=== PATIENT | female | born 1965 | race Caucasian/White ===

== ENCOUNTER 2016-07-17 11:39 | Outpatient (CLI) | END 2016-07-17 11:40 | LOC: AMBL 11:39 | PROVIDERS: ATTEND Internal Medicine | DX: F99 Mental disorder, not otherwise specified (principal); R25.1 Tremor, unspecified; T50.905A Adverse effect of unspecified drugs, medicaments and biological substances, initial encounter ==

== ENCOUNTER 2017-06-26 08:07 | Outpatient (CLI) ==
--- NOTE | 2017-06-26 09:58 | MAMMO ---
EXAM: Bilateral digital screening mammogram (2-D and 3-D) History: Screening Comparison: Bilateral mammogram 05/11/2013 Findings: MLO and CC views of bilateral breasts demonstrate predominately fatty replaced breast pare nchyma. CAD was reviewed by the radiologist. Tomosynthesis was performed. Stable benign lymph node s within the right breast. There are no dominant masses, no suspicious microcalcifications and no ar chitectural distortions Impression: Benign stable mammogram. Recommend followup routine screening mammography in 1 year. BIRADS 2
== END 2017-06-26 08:08 | disposition home or self-care (01) ==
LOC: RAD 08:07
PROVIDERS: ATTEND Nurse Practitioner
DX: Z12.31 Encounter for screening mammogram for malignant neoplasm of breast (principal)
CPT/HCPCS: 77067

== ENCOUNTER 2018-08-27 15:01 | Outpatient (CLI) ==
[2018-08-28 15:21] VITALS: BMI 50.1
== END 2018-08-27 15:02 | disposition home or self-care (01) ==
LOC: RHC-LAB 15:01
PROVIDERS: ATTEND Nurse Practitioner Family
DX: J02.9 Acute pharyngitis, unspecified (principal); R05 Cough; R50.9 Fever, unspecified
CPT/HCPCS: 87502; 87651

== ENCOUNTER 2018-08-28 15:16 | Inpatient (IN) ==
[2018-08-28 15:21] VITALS: BMI 50.1
[2018-08-28] MEDS ORDERED: DUONEB NEB STA (15:30)
--- NOTE | 2018-08-28 15:37 | ED.PDOC ---
General ED Provider: Dr. MICHAEL RAMSEY Chief Complaint: Respiratory Complaint Stated Complaint: Shortness of breath and wheezing. Onset This AM upon awakening. Was see in [facility] yesterday and dx with Strep started on prednisone and Penicillin. States Strep screen was negative. This AM Dyspnea progressively worsened throughout morning until her arrival here. Denies smoking , past hx of lung disease. Only time of being dyspneic was when she was treated for colon cancer serveral years ago. Never had allergy to any antibiotics previously,. Time Seen by Physician: 15:30 Mode of Arrival: Walk-In Information Source: Patient, Family Exam Limitations: No limitations Nursing and Triage Documentation Reviewed and Agree: Yes Does patient meet sepsis criteria?: No If yes, has appropriate treatment been initiated?: No System Inflammatory Response Syndrome: Not Applicable Sepsis Protocol: For patient's 13 years and over: Temp is 96.8 and below OR 101 and greater Pulse >90 BPM Resp >20/minute Acutely Altered Mental Status Are patient's symptoms suggestive of a new infection, such as: -Pneumonia -Skin, Soft Tissue -Endocarditis -UTI -Bone, Joint Infection -Implantable Device -Acute Abdominal Infection -Wound Infection -Meningitis -Blood Stream Catheter Infection -Unknown Respiratory Complaint Exam - Shortness of Air Complaint/Exam Onset/Duration: 6 hrs Symptoms Are: Still present, Worse Timing: Constant Initial Severity: Moderate Current Severity: Severe Character: Reports: Dyspnea at rest, Dyspnea on exertion Aggravating: Reports: Movement, Recumbent position Alleviating: Reports: None Associated Signs and Symptoms: Reports: Cough, Wheezing Related History: Denies: Similar episode History of Healthcare-Acquired Pneumonia: No Pulmonary Embolism Risk Factors: Reports: None Cardiac Risk Factors: Reports: None Pseudomonas Risk Factors: Reports: None Tuberculosis Risk Factors: Reports: None Home Oxygen Use: No Recent Stress Test: No Recent Echo/LV Function: No Respiratory Distress: Moderate Stridor Present: No Tracheal Deviation: No Subcutaneous Emphysema: No Accessory Muscle Use: No Retractions: Not Present Diminished Breath Sounds: Yes Unable to Speak Full Sentences: Yes Fatigue: Yes Leg Swelling: No Radha's Sign Present: No Grunting Respirations: No Kussmaul Respirations: No Differential Diagnoses: Asthma, Pulmonary Embolism, Anaphylaxis, Bronchospasm Quality Indicators for AMI: EKG in 10min. Related Surgical History: Reports: None Review of Systems - Review Of Systems Constitutional: Reports: No symptoms Eyes: Reports: No symptoms Ears, Nose, Mouth, Throat: Reports: No symptoms, Throat pain Respiratory: Reports: Short of air, Wheezing Cardiac: Reports: No symptoms GI: Reports: No symptoms : Reports: No symptoms Musculoskeletal: Reports: No symptoms Skin: Reports: No symptoms Neurological: Reports: No symptoms Endocrine: Reports: No symptoms Hematologic/Lymphatic: Reports: No symptoms All Other Systems: Reviewed and Negative Past Medical History - Past Medical History Previously Healthy: Yes Endocrine: Reports: Hypothyroid Cardiovascular: Reports: None Respiratory: Reports: None Hematological: Reports: None Gastrointestinal: Reports: None Genitourinary: Reports: None Neuro/Psych: Reports: None Musculoskeletal: Reports: Arthritis Cancer: Reports: Colon Last Menstrual Period: n/a - Surgical History General Surgical History: Reports: Other (colon resection ) - Family History Family History: Reports: None - Social History Smoking Status: Never smoker Hx Substance Use: No Alcohol Screening: None Physical Exam - Physical Exam Appearance: Ill-appearing, Obese Ill-appearing: Moderate Pain Distress: None Eyes: RICHIE, EOMI, Conjunctiva clear ENT: Ears normal, Nose normal, Oropharynx normal, Erythema Neck: Supple Respiratory: Breath sounds diminished, Wheezes Cardiovascular: RRR, Pulses normal, No rub, No murmur GI/: Soft, Nontender, No masses, Bowel sounds normal, No Organomegaly Musculoskeletal: Normal strength, ROM intact, No edema, No calf tenderness Skin: Warm, Dry, Normal color Neurological: Sensation intact, Motor intact, Reflexes intact, Cranial nerves intact, Alert, Oriented Psychiatric: Affect appropriate, Mood appropriate Interpretation - Radiology Interpretation Exam Interpreted: CT Scan (PE protocol neg) Re-Evaluation - Re-Evaluation Time of Re-Evaluation: 18:40 Status: Improved (but remains dyspneic at rest.worse with exertion ) Lungs: Other (wheezing) Skin: Warm and Dry Neuro: Alert and Oriented X3 CV: RRR Physician Notification - Case Discussed Physician Notified: Dr Joy Time of Notification: 19:45 (will accept admission ) Critical Care Note - Critical Care Note Total Time (mins): 120 Course - Course Hematology/Chemistry: 08/28/18 15:38 08/28/18 15:45 Orders, Labs, Meds: Lab Review 08/28/18 08/28/18 08/28/18 15:37 15:38 15:43 WBC 10.82 H RBC 5.13 Hgb 14.1 Hct 43.2 MCV 84.2 MCH 27.5 MCHC 32.6 RDW Coeff of Krishna 13.5 Plt Count 193 Immature Gran % (Auto) 0.4 Neut % (Auto) 74.1 Lymph % (Auto) 16.5 Leon % (Auto) 5.0 Eos % (Auto) 3.7 Baso % (Auto) 0.3 Immature Gran # (Auto) 0.0 Neut # (Auto) 8.0 H Lymph # (Auto) 1.8 Leon # (Auto) 0.5 Eos # (Auto) 0.4 Baso # (Auto) 0.0 Puncture Site Lr O2 Saturation 95.0 ABG pH 7.366 ABG pCO2 45.4 H ABG pO2 76.0 L ABG HCO3 26.0 ABG Total CO2 27 ABG Base Excess 1 Willie Test + O2 Delivery Device Nc Oxygen Liter Flow 2.00 Sodium Potassium Chloride Carbon Dioxide Anion Gap BUN Creatinine Estimated GFR (MDRD) BUN/Creatinine Ratio Glucose Calcium Total Bilirubin AST ALT Alkaline Phosphatase Total Creatine Kinase Troponin I Total Protein Albumin Globulin Albumin/Globulin Ratio Influ A Molecular Assay Negative by naat Influ B Molecular Assay Negative by naat 08/28/18 08/28/18 15:45 15:45 WBC RBC Hgb Hct MCV MCH MCHC RDW Coeff of Krishna Plt Count Immature Gran % (Auto) Neut % (Auto) Lymph % (Auto) Leon % (Auto) Eos % (Auto) Baso % (Auto) Immature Gran # (Auto) Neut # (Auto) Lymph # (Auto) Leon # (Auto) Eos # (Auto) Baso # (Auto) Puncture Site O2 Saturation ABG pH ABG pCO2 ABG pO2 ABG HCO3 ABG Total CO2 ABG Base Excess Willie Test O2 Delivery Device Oxygen Liter Flow Sodium 146.3 H Potassium 3.16 L Chloride 107.1 H Carbon Dioxide 28.8 Anion Gap 13.56 BUN 11.7 Creatinine 0.76 Estimated GFR (MDRD) 79.00 BUN/Creatinine Ratio 15.39 Glucose 130.8 H Calcium 8.63 Total Bilirubin 1.31 H AST 26.6 ALT 31.3 Alkaline Phosphatase 109.6 Total Creatine Kinase 77.1 Troponin I < 0.012 Total Protein 7.44 Albumin 4.16 Globulin 3.28 Albumin/Globulin Ratio 1.26 Influ A Molecular Assay Influ B Molecular Assay Orders Category Date Time Status ABG DRAW REQUEST Stat CARDIO 08/28/18 15:38 Completed EKG-(ED ONLY) Stat CARDIO 08/28/18 15:37 Completed EKG-(IP & OP ONLY) Routine CARDIO 08/28/18 20:07 Ordered NEBULIZER TREATMENT Routine CARDIO 08/28/18 20:09 Ordered NEBULIZER TREATMENT Stat CARDIO 08/28/18 15:30 Completed OXYGEN Routine CARDIO 08/28/18 15:42 Ordered OXYGEN Routine CARDIO 08/28/18 20:04 Ordered ACTIVITY .BR with BRP CARE 08/28/18 20:05 Ordered BLOOD GLUCOSE MONITORING 0630,1100,1700,2100 CARE 08/28/18 20:07 Ordered INTAKE & OUTPUT Q8HR CARE 08/28/18 20:04 Ordered NPO REMINDER: IMAGING ONCE CARE 08/28/18 16:50 Completed VITAL SIGNS Q4HR CARE 08/28/18 20:05 Ordered REGULAR DIET DIETARY 08/28/18 Dinner Ordered IV [ED IV/MEDIPORT/POWERPORT] .ONCE EMERGENCY 08/28/18 15:33 Active ABG Stat LAB 08/28/18 15:37 Completed CBC W/ AUTO DIFF Stat LAB 08/28/18 15:38 Completed CMP [COMPREHENSIVE METABOLIC PANEL] Stat LAB 08/28/18 15:45 Completed CREATINE KINASE Stat LAB 08/28/18 15:45 Completed FLU A & B MOLECULAR [FLU A/B MOLECULAR] Stat LAB 08/28/18 15:43 Completed LACTIC ACID Stat LAB 08/28/18 20:13 Ordered PROCALCITONIN Stat LAB 08/28/18 20:13 Ordered RAPID STREP SCREEN [MOLECULAR GROUP A STREP] Stat LAB 08/28/18 15:43 Completed TROPONIN I Stat LAB 08/28/18 15:45 Completed TSH [THYROID STIMULATING HORMONE] Stat LAB 08/29/18 07:00 Ordered 0.9 % Sodium Chloride [Saline Flush] MEDS 08/28/18 15:34 Active 1 syr IVF PRN PRN Albuterol Sulfate 0.083% Neb [Albuterol 0.083% Neb] MEDS 08/28/18 20:04 Ordered 1 vial NEB RTQID PRN Cholecalciferol (Vitamin D3) [Vitamin D3] MEDS 08/28/18 21:00 Ordered 50,000 unit PO TID Enoxaparin Sodium [Lovenox] MEDS 08/28/18 20:30 Ordered 40 mg SUBCUT DAILY Famotidine [Pepcid] MEDS 08/28/18 20:30 Ordered 20 mg PO 1-3XD Hydrocortisone Sod Succ/Pf [Solu-Cortef 250 mg] MEDS 08/28/18 16:00 Discontinued 125 mg IVP ONCE ONE Ipratropium/Albuterol Neb [Duoneb] MEDS 08/28/18 15:30 Discontinued 1 vial NEB ONCE STA Ipratropium/Albuterol Neb [Duoneb] MEDS 08/29/18 00:00 Ordered 1 vial NEB RTQ6H Levothyroxine Sodium [Synthroid] MEDS 08/29/18 09:00 Ordered 25 mcg PO DAILY Potassium Chloride [K-Dur] MEDS 08/28/18 18:34 Discontinued 20 meq PO ONCE STA Prednisone MEDS 08/29/18 09:00 Ordered 40 mg PO DAILY Trazodone HCl [Desyrel] MEDS 08/28/18 21:00 Ordered 50 mg PO BEDTIME RESUSCITATION STATUS Routine OTHERS 08/28/18 20:04 Ordered CHEST, 1V AP ONLY Stat RADS 08/28/18 15:[address] CHEST PE PROTOCOL Stat RADS 08/28/18 16:49 Completed Medications Generic Name Dose Route Start Last Admin Trade Name Freq PRN Reason Stop Dose Admin Albuterol Sulfate 1 vial 08/28/18 20:04 Albuterol 0.083% Neb NEB RTQID PRN Wheezing Albuterol/Ipratropium 1 vial 08/29/18 00:00 Duoneb NEB RTQ6H ERIN Enoxaparin Sodium 40 mg 08/28/18 20:30 Lovenox SUBCUT DAILY ERIN Famotidine 20 mg 08/28/18 20:30 Pepcid PO 1-3XD ERIN Levothyroxine Sodium 25 mcg 08/29/18 09:00 Synthroid PO DAILY ERIN Non-Formulary Medication 50,000 unit 08/28/18 21:00 Cholecalciferol (Vitamin D3) [Vitamin D3] PO TID ERIN Prednisone 40 mg 08/29/18 09:00 Prednisone PO DAILY ERIN Sodium Chloride 1 syr 08/28/18 15:34 08/28/18 16:24 Saline Flush IVF 1 syr PRN PRN Administration To flush IV Trazodone HCl 50 mg 08/28/18 21:00 Desyrel PO BEDTIME ERIN Discontinued Medications Generic Name Dose Route Start Last Admin Trade Name Jose PRN Reason Stop Dose Admin Albuterol/Ipratropium 1 vial 08/28/18 15:30 08/28/18 16:27 Duoneb NEB 08/28/18 15:31 1 vial ONCE STA Administration Hydrocortisone Sodium Succinate 125 mg 08/28/18 16:00 08/28/18 16:23 Solu-Cortef 250 Mg IVP 08/28/18 16:01 125 mg ONCE ONE Administration Potassium Chloride 20 meq 08/28/18 18:34 08/28/18 18:46 K-Dur PO 08/28/18 18:35 20 meq ONCE STA Administration Vital Signs: Temp Pulse Resp BP Pulse Ox 08/28/18 15:17 98.7 F 106 H 20 153/88 H 90 L Departure - Departure Time of Disposition: 20:30 Disposition: ADMITTED INPATIENT Discharge Problem: Dyspnea and respiratory abnormality, Wheezing, Pharyngitis Instructions: Pharyngitis (ED), Wheezing (ED) Condition: Stable Pt referred to PMD for follow-up: Yes (Dr Juarez) IPMP verified?: No Allergies/Adverse Reactions: Allergies topiramate [From Topamax] Adverse Reaction (Verified 08/28/18 15:21) Home Medications: Ambulatory Orders Cholecalciferol (Vitamin D3) [Vitamin D3] 50,000 unit PO TID 08/27/18 Cyanocobalamin (Vitamin B-12) [B-12] 500 mcg PO DAILY 08/27/18 Diclofenac Sodium 75 mg PO DAILY 08/27/18 Escitalopram Oxalate 10 mg PO BEDTIME 08/27/18 Famotidine [Pepcid] 20 mg PO 1-3XD 08/27/18 Furosemide 20 mg PO DAILY 08/27/18 Levothyroxine Sodium 25 mcg PO DAILY 08/27/18 Trazodone HCl 50 mg PO BEDTIME 08/27/18 Disposition Discussed With: Patient, Family, Other (Dr Teague)
[2018-08-28] MEDS ORDERED: SOLU-CORTEF 100 MG 125 MG in SODIUM CHLORIDE 100 ML IV ONE (15:39)
[2018-08-28] MEDS ORDERED: SOLU-CORTEF 250 MG IVP ONE (16:00)
--- NOTE | 2018-08-28 18:28 | CT ---
EXAM: CTA chest with contrast using PE protocol. TECHNIQUE: Helical CTA of the chest was performed with contrast in axial plane with coronal and sagit jc reconstructions and separate work station 3-D renderings. COMPARISON: Chest x-ray from today and chest CT from 10/29/2013 all HISTORY: . Short of breath with chest pain FINDINGS: There are no filling defects in the pulmonary arteries to the level of the subsegmental branches. The re is no sign of ventricular strain. The lungs are clear with no large effusion or failure or lobar i nfiltrate. There is no pathologic supraclavicular, axillary, mediastinal or hilar adenopathy. There is no pericardial effusion or pneumothorax. The aorta demonstrates mild atherosclerotic calcifi cations with no dissection or aneurysm. There are gallstones with no inflammation. There is a splen ule near the spleen. There are no acute osseous abnormalities. IMPRESSION: 1. No evidence for pulmonary embolus. Lungs are clear. 3. No dissection or aneurysm of the aorta. 4. Gallstones with no inflammation.
[2018-08-28] MEDS ORDERED: K-DUR PO STA (18:34)
[2018-08-28] MEDS ORDERED: ALBUTEROL 0.083% NEB NEB PRN (20:04)
[2018-08-28] MEDS ORDERED: PEPCID PO SCH (20:30)
[2018-08-28] MEDS ORDERED: NON-FORMULARY MEDICATION (Cholecalciferol (Vitamin D3) [Vitamin D3] 50,000 UNIT) PO SCH (21:00)
--- NOTE | 2018-08-28 21:13 | PCM ---
- Chief Complaint Chief Complaint: SOA and wheezing, respiratory concern - History of Present Illness History of Present Illness: 53 yo CF patient seen by POWER TECHNICIAN Siddhartha 08/27/18 at [facility] of sore throat, painful swallowing, itchy/watery eyes, productive cough w/ yellow sputum, sneezing, nasal drainage, body aches, nasal drainage, HERNANDEZ x 24 hours. History noted fear of strep as she has had this in the past. No fever, no chills, no N/V/D/ Constipation rash or dysuria. OTC allergy meds utilized, exposed to flu. Weight 259 in clinic, Temp 98.4, R 16, BP 132/88. She was dx with acute non- recurrent maxillary sinusitis despite only 24 hours of symptoms and started on Pencillin V Potassium 500 TID x 7 days. Dx Pharyngitis and prednisone 20mg PO Daily 2 days #4. No known allergies to meds. Centor criteria suggest strep less likely, lack of tonsils suggests strep less likely. Presented to ED 15:30 08/28/18 w/ SOA, wheezing, onset this am upon awakening. She met with Dr. Esteban d/w him the clinic eval. SALAS, worsening throughout am and arrived in ER as noted ~1530. No tobacco history, no history of lung disease. Was treated for similar symptom several years ago when she had h/o colon cancer. NO allergy to abx. Temp 98.7, HR 106, RR 20, BP 153/88, O2 90%. WBC 10.82, hgb 14.1, hcg 43.2, plt 193. ABG ph 7.366, O2 saturation 95%, 45.4 pc02, hco3 26, and represented primary respiratory acidosis chronic with secondary metabolic acidosis. CL elevated. Anion Gap of 10.4 mEq/L Delta Ratio 0.3 mEq/ L suggests hyperchloremic normal anion gap acidosis. Corrected Gap for albumin was 10.0. Sodium 146.3 and mildly elevated. K+ 3.16 and mildly low. Cl 107.1 and mildly high. glucose 130.8. Bili 1.31. Calcium 8.63. Procalcitinon negative, lactic acid negative. CK 77.1 Trop I was <0.012. Flu negative. Within ER she received neb treatment at 15#0, 20:09, oxygen was added. Glucose monitoring was added. ABG done 15:38. Rapid strep was negative, flu was negative. TSH checked and normal. Was given solu-cortef 250mg 08/28/18 16:00 duon eb 15:30, K dur 20meq given. Dr. Estbean called me just after 19:59 and informed me about the patient. Moderate to severe symptoms, SALAS at rest and with exertion. Worse w/ movement, recumbent position, no alleviating factors. Cough/wheezing, SOA, hard to capture breath. Moderate respiratory distress, asthma, PE, anaphylaxis, bronchospasm were all on the list. She hsa not inhaled anything, only new medication was the PCN. She has no rash, no fever, no SIRS criteria, no neuro changes, no MSK issues, no GI issues, No issues. PMH hypothyroid, arthritis and colon cancer. No drugs, no ETOH, no smoking. Daughter tomy present, permission given to speak freely. 2 doses of abx yesterday, 1 this am. She had symptoms ~1.5-2 hours after dose and has worsened. Took no more. Concern for PCN allergy. No rash. She has SALAS, Orthopnea. No CP, no vision changes, no syncope. - Review of Systems Constitutional: sweats, fatigue, loss of appetite. No: fever, chills, weakness Eyes: itching. No: blurred vision, double-vision, discharge, pain, redness, photophobia, other Ears: No: pain, bleeding, drainage, ringing, hearing loss, other Nose: congestion, discharge Throat: pain, swelling. No: voice change, other Mouth: No: bleeding, pain, swelling, other Respiratory: cough, shortness of air, wheeze (reported), pain with breathing Cardiovascular: PND, orthopnea. No: chest pain, left arm pain, diaphoresis, edema, palpitations (She reported no. ), syncope Gastrointestinal: No: abdominal pain, nausea, vomiting, diarrhea, melena, hematemesis, hematochezia, dysphagia, constipation Genitourinary: No: dysuria, hematuria, frequency, incontinence, flank pain, vaginal discharge, abnormal bleeding, pelvic pain, other Neurological: other. No: headache, dizziness, seizure, numbness, weakness, speech difficulty, problems with walking, tremor, fainting Musculoskeletal: No: pain, swelling in joints, other Skin: No: rash, pruritus, lacerations, wounds, bruising, other Immunology: No: hives, itching, frequent infections, difficulty healing, other Hematology: No: easy bruising, easy bleeding, swollen glands, other Endocrine: No: weight changes, cold intolerance, heat intolerance, excessive thirst, excessive hunger, polyuria, other Psychiatric: depression, anxiety (no panic. ). No: sleeplessness, hopelessness , suicidal, hallucinations, other - Past Medical History Past Medical History: Colon Cancer, Arthritis, Acquired Hypothyroidism. Morbid obesity. Insomnia, GERD. - Past Surgical History Past Surgical History: Colectomy secondary to colon cancer, Lymph node sentinal dissection. Tonsillectomy. Adenoidectomy. - Allergies Allergies/Adverse Reactions: Allergies Allergy/AdvReac Type Severity Reaction Status Date / Time penicillin V Allergy Severe Chest Verified 08/28/18 22:43 Tightness topiramate [From Topamax] AdvReac Mild Abdominal Verified 08/28/18 22:43 Pain - Medications Medications: Medications Generic Name Dose Route Start Last Admin Trade Name Freq PRN Reason Stop Dose Admin Albuterol Sulfate 1 vial 08/28/18 20:04 Albuterol 0.083% Neb NEB RTQID PRN Wheezing Albuterol/Ipratropium 1 vial 08/29/18 00:00 Duoneb NEB RTQ6H ERIN Enoxaparin Sodium 40 mg 08/28/18 20:30 Lovenox SUBCUT DAILY ERIN Famotidine 20 mg 08/28/18 20:30 Pepcid PO 1-3XD ERIN Levothyroxine Sodium 25 mcg 08/29/18 09:00 Synthroid PO DAILY ERIN Non-Formulary Medication 50,000 unit 08/28/18 21:00 Cholecalciferol (Vitamin D3) [Vitamin D3] PO TID ERIN Prednisone 40 mg 08/29/18 09:00 Prednisone PO DAILY ERIN Sodium Chloride 1 syr 08/28/18 15:34 08/28/18 16:24 Saline Flush IVF 1 syr PRN PRN Administration To flush IV Trazodone HCl 50 mg 08/28/18 21:00 Desyrel PO BEDTIME ERIN - Family History Past Family History: Mother Cancer, Heart prolbems, HTN, Thyroid disease. MGM Cancer. MGF Cancer. #2 daughters. - Social History Past Social History: . . No drugs/no ETOH/NO Tobacco. - Vital Signs Temperature: 98.7 F Pulse Rate: 106 Respiratory Rate: 20 Blood Pressure: 153/88 O2 Sat by Pulse Oximetry: 90 - Body Composition Height: 5 ft Weight: 256 lb 14.4 oz Body Mass Index (BMI): 50.1 - Physical Examination HEENT: Constitutional: Appearance-No acute distress, Consistent with stated age. Orientation- Oriented x 3, alert Build and Nutrition- Morbid obesity BMI 50.2. General- Patient is pleasant and cooperative with the interview and exam. Integumentary: General-No rashes, ulcers or lesions. Palpation- Normal skin moisture/turgor. Skin is warm to touch, appropriate. Capillary refill is normal bilateral Upper and lower extremity. With Nurse Kayler present under breast, inner thigh, buttock evaluated. No rash, no skin breakdown. Head/Neck: Head- normocephalic and atraumatic. Neck- without visible/palpable lumps or pulsations. Palpation- No bony tenderness about head/neck along frontal, occipital, temporal, parietal, mastoid, jawline, zygoma, orbit or any other location. NO temporal artery tenderness. No TMJ tenderness. Neck Supple. Thyroid-No thyromegaly, no nodules Eye: Bilaterally PERRLA, EOMI. No discharge. Upper and lower eyelids are normal. Sclera/conjunctiva normal without discharge. Cornea is normal and clear. Lens is normal. Eyeball appears normal. No ciliary flushing, no conjunctival injection. ENMT: Pinna- normal without tenderness or erythema. External auditory canal Left- normal without erythema or discharge, no excessive cerumen. External auditory canal Right-normal without erythema or discharge, no excessive cerumen. TM left- Hill/pearly, normal light reflex and anatomy TM Right- Hill/ pearly, normal light reflex and anatomy Hearing Assessment-normal to conversational speech. Nose and sinus- No sinus tenderness along frontal/ maxillary region. External appearance normal and midline. Nares- bilateral quiet airflow, no discharge. Nasal mucosa- No bleeding noted and no ulcerations observed. [place], moist. Turbinates non boggy. Lips- normal color, moist without cracks/lesions Oral Cavity/Palate- hard/soft palate intact without lesions, oral mucosa pink and moist. Tongue normal midline. Oropharynx- Minimal pharyngeal erythema, Post nasal drainage. No exudate. Salivary glands- Non tender to palpation CHEST/LUNG: Inspection- symmetric chest wall no pectus deformity. Normal effort , no distress, no use of accessory muscles. Palpation- nontender sternum, ribline. No abnormal pulsations. Auscultation- Breath sounds diminished but normal throughout all lung fernandez. Normal tracheal sounds, Normal bronchial sounds overlying sternum, Bronchovessicular sounds normal between scapulae posteriorly, Normal vessicular breath sounds heard throughout periphery. Lungs are clear today. Adventitious sounds- No appreciable wheezes, rales, rhonchi. CARDIOVASCULAR: Carotid artery- normal, no bruits or abnormal pulsations. Jugular vein- no pulsations. Palpation/Percussion- Normal PMI, no palpable thrill Auscultation- Regular rate and rhythm. No murmur noted in sitting, supine positions. Extremities- no digital clubbing, cyanosis, edema, increased warmth. ABDOMEN: Inspection- normal and no visible pulsations. Normal contour. Auscultation- Bowel sounds normal, no abdominal bruits. Palpation/Percussion- soft, non-tender, no rebound tenderness, no rigidity (guarding), no jar tenderness, no masses. Liver-no hepatomegaly, Spleen no splenomegaly, Hernias - none. Rectal not examined. Peripheral Vascular: Upper extremity Left- Normal temperature with pink nailbeds and no ulcerations. Upper extremity Right- Normal temperature with pink nailbeds and no ulcerations. Lower extremity- Normal temperature with pink nailbeds and no ulcerations. DP pulses 2+ bilaterally. Pedal hair intact. Normal capillary refill. Edema- No edema. Musculoskeletal: Generalized-No generalized swelling or edema of extremities, no digital clubbing or cyanosis, neurovascularly intact all four extremities. Upper extremity- Symmetrical posture. No visible deformity. Normal sensation along medial and lateral upper extremity proximally and distally. NO tenderness overlying shoulder, lateral/medial epicondyle. Saw Maker 5/5 and strength 5/5 bilateral UE. Elbow palpated, no tenderness overlying olecranon. Normal supination, pronation to active/passive ROM and to resisted rotation. Bicep insertion/tricep insertion appear normal without obvious pathology. Rotator cuff evaluated and intact. Normal wrist ROM bilaterally. Normal hand movement, intrinsic muscles of hands normal. No tenderness to palpation of hands/wrists/ elbows. Lower extremity- Hip: Not tender to palpation, no pain, no swelling, edema or erythema of surrounding tissue, normal strength and tone. Normal appearing hip ROM bilaterally without pain. Knee: Knee ROM normal. No tenderness overlying trochanters, no tenderness about patella, quad tendon, patellar tendon. No tenderness at tibial tuberosity. Ankle: normal ROM not tender to palpation along medial/lateral malleolus. Foot: Normal movement of toes, no tenderness bilateral feet/toes. Normal foot type. Spine/Ribs- No deformities, masses or tenderness, no known fractures, normal strength, Normal ROM. Normal stability No tenderness along C/T/L spine. Normal appearing ROM about spine. Neurological: General- Moves all 4 extremities symmetrically. Symmetrical face and body posture. Cranial nerves- individually evaluated II-XII and intact. PERRLA, Normal EOMI, visual/special senses appear intact, Face is symmetrical and normal sensation/movement, normal tongue, normal strength/posture of neck musculature. Reflexes- intact with DTR 2+ patellar, Achilles, bicep, brachial, tricep. Ankle clonus normal with 2 beats. Strength- 5/5 bilateral UE and LE. Soft touch- intact bilateral UE and LE. Temperature sensation- intact bilateral UE and LE. Neuropsych: Oriented- Person, place, time. (AAOx3), Mood/affect- normal and congruent. Able to articulate well. Speech-Normal speech, normal rate, normal tone, normal use of language, volume and coherence. Thought content- normal with ability to perform basic computations and apply abstract thought/reason. Associations- intact, no SI/HI, no hallucinations, delusions, obsessions. Judgment/insight- Appropriate. Memory-Recall intact, remote and recent memory intact. Knowledge- Age appropriate fund of knowledge, concentration and attention span normal. Lymphatic: Head/Neck- normal size and non tender to palpation. Axillary- normal size and non tender to palpation. Femoral and Inguinal- normal size and non tender to palpation. - Lab/Tests/Diagnostic Imaging Lab/Tests/Diagnostic Imaging: Laboratory Last Values WBC 10.82 K/ul (4.6-10.2) H 08/28/18 15:38 RBC 5.13 10^6/ul (4.20-5.40) 08/28/18 15:38 Hgb 14.1 g/dl (12.0-16.0) 08/28/18 15:38 Hct 43.2 % (37.0-47.0) 08/28/18 15:38 MCV 84.2 fl (81.0-99.0) 08/28/18 15:38 MCH 27.5 pg (27.0-31.0) 08/28/18 15:38 MCHC 32.6 (31.8-35.4) 08/28/18 15:38 RDW Coeff of Krishna 13.5 % (11.6-14.8) 08/28/18 15:38 Plt Count 193 10^3/uL (140-440) 08/28/18 15:38 Immature Gran % (Auto) 0.4 % (0.0-5.0) 08/28/18 15:38 Neut % (Auto) 74.1 08/28/18 15:38 Lymph % (Auto) 16.5 (10.0-50.0) 08/28/18 15:38 [place] % (Auto) 5.0 (0-10) 08/28/18 15:38 Eos % (Auto) 3.7 % (0.0-7.0) 08/28/18 15:38 Baso % (Auto) 0.3 % (0.0-3.0) 08/28/18 15:38 Immature Gran # (Auto) 0.0 (0.0-1.0) 08/28/18 15:38 Neut # (Auto) 8.0 K/ul (2.0-6.9) H 08/28/18 15:38 Lymph # (Auto) 1.8 K/uL (0.60-3.4) 08/28/18 15:38 [place] # (Auto) 0.5 K/uL (0.4-2.0) 08/28/18 15:38 Eos # (Auto) 0.4 K/ul (0.0-0.7) 08/28/18 15:38 Baso # (Auto) 0.0 K/uL (0-0.2) 08/28/18 15:38 Puncture Site Lr 08/28/18 15:37 O2 Saturation 95.0 % (95-100) 08/28/18 15:37 ABG pH 7.366 (7.35-7.45) 08/28/18 15:37 ABG pCO2 45.4 mmHg (35-45) H 08/28/18 15:37 ABG pO2 76.0 mmHg (85-100) L 08/28/18 15:37 ABG HCO3 26.0 (22.0-26.0) 08/28/18 15:37 ABG Total CO2 27 (22.0-28.0) 08/28/18 15:37 ABG Base Excess 1 (-2.0-2.0) 08/28/18 15:37 Willie Test + 08/28/18 15:37 O2 Delivery Device Nc 08/28/18 15:37 Oxygen Liter Flow 2.00 08/28/18 15:37 Sodium 146.3 mmol/L (134.5-145) H 08/28/18 15:45 Potassium 3.16 mmol/L (3.5-5.1) L 08/28/18 15:45 Chloride 107.1 mmol/L (98-107) H 08/28/18 15:45 Carbon Dioxide 28.8 mmol/L (22-30.0) 08/28/18 15:45 Anion Gap 13.56 08/28/18 15:45 BUN 11.7 mg/dL (7-17) 08/28/18 15:45 Creatinine 0.76 mg/dL (0.60-1.30) 08/28/18 15:45 Estimated GFR (MDRD) 79.00 mL/min 08/28/18 15:45 BUN/Creatinine Ratio 15.39 08/28/18 15:45 Glucose 130.8 mg/dL (74-106) H 08/28/18 15:45 Lactic Acid 1.59 mmol/L (0.7-2.1) 08/28/18 20:39 Calcium 8.63 mg/dL (8.4-10.2) 08/28/18 15:45 Total Bilirubin 1.31 mg/dL (0.2-1.3) H 08/28/18 15:45 AST 26.6 U/L (14-36) 08/28/18 15:45 ALT 31.3 U/L (0-35) 08/28/18 15:45 Alkaline Phosphatase 109.6 U/L (38-126) 08/28/18 15:45 Total Creatine Kinase 77.1 U/L (30-135) 08/28/18 15:45 Troponin I < 0.012 ng/ml (0.0000-0.120) 08/28/18 15:45 Total Protein 7.44 g/dL (6.3-8.2) 08/28/18 15:45 Albumin 4.16 g/dL (3.5-5.0) 08/28/18 15:45 Globulin 3.28 08/28/18 15:45 Albumin/Globulin Ratio 1.26 08/28/18 15:45 Procalcitonin < 0.05 ng/mL (0.09) 08/28/18 20:39 Influ A Molecular Assay Negative by naat (NEGATIVE) 08/28/18 15:43 Influ B Molecular Assay Negative by naat (NEGATIVE) 08/28/18 15:43 Strep was negative. Flu was negative. CT Chest: No e/o Pulmonary embolux, lungs are clear. NO effusion or pneumothorax. Aorta mild atherosclerosis. No dissection, no aneursym. Splenule near the spleen. No bony issues. Gallstones w/o inflammation. - Assessment (1) Dyspnea and respiratory abnormality Status: Acute Code(s): R06.00 - DYSPNEA, UNSPECIFIED; R06.89 - OTHER ABNORMALITIES OF BREATHING SNOMED Code(s): 767034096 (2) Pharyngitis Status: Acute Code(s): J02.9 - ACUTE PHARYNGITIS, UNSPECIFIED SNOMED Code(s) : 657308626 (3) Acquired hypothyroidism Status: Acute Code(s): E03.9 - HYPOTHYROIDISM, UNSPECIFIED SNOMED Code(s): 475113255 (4) BMI 50.0-59.9, adult Status: Acute Code(s): Z68.43 - BODY MASS INDEX (BMI) 50-59.9, ADULT SNOMED Code(s): 078225567, 424070591 (5) GERD (gastroesophageal reflux disease) Status: Acute Code(s): K21.9 - GASTRO-ESOPHAGEAL REFLUX DISEASE WITHOUT ESOPHAGITIS SNOMED Code(s): 194098565 (6) Wheezing Status: Acute Code(s): R06.2 - WHEEZING SNOMED Code(s): 14818534 (7) Hypernatremia Status: Acute Code(s): E87.0 - HYPEROSMOLALITY AND HYPERNATREMIA SNOMED Code (s): 18140032 (8) Hypokalemia Status: Acute Code(s): E87.6 - HYPOKALEMIA SNOMED Code(s): 25699669 (9) Penicillin adverse reaction Status: Acute Code(s): T36.0X5A - ADVERSE EFFECT OF PENICILLINS, INITIAL ENCOUNTER SNOMED Code(s): 302329657 - Plan Plan: Dyspnea and respiratory abnormality (Acute)/Wheezing (Acute): Etiology Unknown. Negative CT. Minimal elevation of WBC. Minimal elevation of sodium, low potassium. NO elevated troponin, no elevated procalcitonin, no elevated lactic acid. ABG appears okay. Vitals on floor are okay. Weight is markedly elevated. We discussed panic attack, we discussed gerd, discussed viral URI discussed bronchospasm (viral vs pcn), discussed PE. Again CT was negative for PE. . I noted that she was on lasix but no history of CHF. I asked why she noted for peripheral edema. After further history was exposed to tobacco smoke 1 week ago. She has not had any exposure to chemicals. Her dyspnea is odd. I will add PCN as a possible allergy as she has had these symptoms within 24 hours of only different thing was the PCN. We reviewed the typical clinical manifestations of PCN allergy to include pruritis, flushing, urticaria, angioedema which are not present. She does have some e/o bronchospasm (wheezing , chest tightness, difficulty breathing, dry cough, laryngeal edema). NO hypotension, no abdominal distress. Her relative sudden onset suggests possibility of type i IGE mediated response vs less likely delayed type reaction. She noted 2 doses of the abx yesterday and 1 today this am. Symptoms started ~2 hours after dose this am. REviewed her Rx, dose and route. She did take abx with food, which could delay the onset of immediate reaction. We will stop the abx as this can escalate. - admit obs - duonebs q6 hours - albuterol q 2-4 hours - solumedrol in ER, prednisone 20mg to start 08/29/18 am. - Telemetry. - Stop antibiotics. - I+O - Daily weight Penicillin Immediate Reaction: Stop PCN. - Monitor overnight - O2 92-98% titrate. - Stop Penicillin - NO abx as patient likely has viral URI. Acquired hypothyroidism (Acute): Unknown status. Check TSH and f/u with results. On levothyroxine minimal dose, which may not be necessary. Goal 1.0- 3.0. - Continue home dose levothyroxine. BMI 50.0-59.9, adult (Acute): Discussed the federal guidelines suggest a healthy goal BMI of 18.5-24.9 for people 18-65 and 23-30 for people age 65 and older. Overweight is considered BMI 25-30, Obesity 30-40 and Morbid obesity is defined as >100 lb overweight or BMI >40. With a BMI above goal, it is recommended to utilize a diet/exercise program to get back into the appropriate range. Consider referral to loin trimmer. For BMI >40 consider referral to bariatrics. If not already monitoring intake. I would recommend at least to keep a food diary. Document everything that is consumed into a food diary. Studies have shown that patients can lose up to 2x the weight by keeping track of foods. Offered handout on weight loss techniques. Apps that may be of benefit include [employer], Lose it. Regular exercise encouraged. Start with walking 5-10 minutes at a pace that is difficult to carry a conversation. If chest pain/SOA stop and f/u in office. GERD (gastroesophageal reflux disease) (Chronic): Continue zantac. Discussed foods, discussed recent GERD, she denied recent changes. No Panic, no sour taste , no choking. - Continue Home H2 razia Hypernatremia: Minimal. Etiology not known. ?RTA as possibility (Type 1 distal and type 2 proximal). I will provide NS +10 meq KCL- at 100ml/hour. I will check urine to evaluate the urine PH. Tyle 1 and 2 can have >5.3 but type 2 may be <5.3 if hc03 reduced. I will check CMP again in am. - CMP in am. Hypokalemia: Minimal >3.0. We will repeat CMP in am. Fluids 100ml/hr 0.9%NaCl +10meq KCL. - CMP in am - Fluids as listed. Pharyngitis (Acute): Strep negative. Ddx discussed today viral URI with post nasal drip, w/ much less likely strep pharyngitis, mononucleosis, viral pharyngitis such as herpangina H/F/M syndrome. She has had tonsillectomy, Centor Criteria low. Patient has acute pharyngitis by history and exam. Reviewed exposures and travel. We discussed antibiotic options, and that we would not use them as she is strep negative. She is flu negative. Risks/ benefits of abx and steroids discussed with patient today. Decadron, dexamethasone, methylprednisolone, prednisone. Pt notified of potential pros/ risks of steroid treatment including rapid improvement of condition; allergic reaction, psychologic reaction (depression, anxiety, insomnia), skin change at injection site (color, dimpling), muscle weakness, changes in blood sugar, cataracts/glaucoma, AVN. This list is not all inclusive and patient is aware they may refuse treatment. - No abx. BMI 50.0-59.9, adult (Acute): Discussed the federal guidelines suggest a healthy goal BMI of 18.5-24.9 for people 18-65 and 23-30 for people age 65 and older. Overweight is considered BMI 25-30, Obesity 30-40 and Morbid obesity is defined as >100 lb overweight or BMI >40. With a BMI above goal, it is recommended to utilize a diet/exercise program to get back into the appropriate range. Consider referral to loin trimmer. For BMI >40 consider referral to bariatrics. If not already monitoring intake. I would recommend at least to keep a food diary. Document everything that is consumed into a food diary. Studies have shown that patients can lose up to 2x the weight by keeping track of foods. Offered handout on weight loss techniques. Apps that may be of benefit include [employer], Lose it. Regular exercise encouraged. Start with walking 5-10 minutes at a pace that is difficult to carry a conversation. If chest pain/SOA stop and f/u in office. Code Status: Full Diet: 1800 kcal Regular DVT Prophy: Lovenox Disposition: Will check ProBNP. Will stop PCN. No abx for now. Will reassess in am. Suspect overnight observation and home in am if she continues to do well. WE will monitor on telemetry. O2 to titrate 92-98%. Nebs as listed. Fluids 100ml NS +10 meq K. Stop PCN. RE-evaluate in the am. >70 minutes spent today discussing history, reviewing the Er note, talking with Er physician, reviewing outpatient note, reviewing labs. Reassess in am.
[2018-08-28] MEDS ORDERED: DUONEB NEB ONE (21:29)
[2018-08-28] MEDS: DUONEB NEB SCH (21:29)
[2018-08-28] MEDS ORDERED: POTASSIUM CHLORIDE 20 MEQ VIAL IV ONE (23:14)
[2018-08-28] MEDS: POTASSIUM CHLORIDE 10 MEQ VIAL 10 MEQ in SODIUM CHLORIDE 1,000 ML IV SCH (23:26)
[2018-08-28] MEDS: DESYREL PO SCH (23:33)
[2018-08-28] MEDS: LOVENOX SUBCUT SCH (23:34)
[2018-08-28] MEDS: LEXAPRO PO SCH (23:34)
[2018-08-29] MEDS: DUONEB NEB SCH ×4 (04:46→23:15)
[2018-08-29] MEDS: SYNTHROID PO SCH (06:03)
--- NOTE | 2018-08-29 07:35 | DI ---
EXAM: CHEST FRONTAL VIEW HISTORY: Sore throat and dyspnea, wheezing. COMPARISON: 09/21/2013 FINDINGS: Heart size and mediastinum remain within normal limits. Lungs are free of infiltrate. No consolidation or pleural fluid. There is no pneumothorax or acute bony finding. Right port cat heter has been placed ending in the right atrium. IMPRESSION: 1. No acute infiltrates or process. 2. Port catheter placement ending in the right atrium.
[2018-08-29] MEDS ORDERED: PREDNISONE PO SCH (08:00)
[2018-08-29] MEDS ORDERED: SYNTHROID PO SCH (09:00)
[2018-08-29] MEDS: LOVENOX SUBCUT SCH (09:09)
[2018-08-29] MEDS: PEPCID PO SCH ×3 (09:25→20:52)
--- NOTE | 2018-08-29 12:06 | ECHO2D ---
Date of Exam: 08/29/18 Ordering Physician: DR. GEORGE LOWERY Room #: 119 Reason for Echo: SOB, HYPOKALEMIA M-Mode Normal Adult Results LV Dimensions Normal Adult Results AoV Opening excursions >1.6 >1.6 LVEDD-base- 3.5-5.8 4.1 Ao root dimensions 2.0-3.7 3.0 LVESD-base- 3.1-4.6 L. Atrium dimensions 1.9-3.8 3.6 Post. Wall thickness 0.8-1.1 1.1 IV septum (thickness) 0.7-1.2 1.1 Post. Wall excursion 0.72-1.3 NORMAL Septal motion NORMAL Systolic motion R. Ventricular cavity 1.5-2.0 NORMAL LVEF 60% 75% Paradoxical septal wall motion NORMAL 2-D : 2-D M Mode Echocardiogram was performed using apical four chamber and left parasternal long and short axis views. Mitral, tricuspid and aortic valves appear to be normal. Contractility of the left ventricle seems to be normal, so is the cavity size. Left atrial cavity size and aortic root appear to be normal. There is no pericardial effusion. There is no thrombus noted in the left ventricular or left aortic cavity. No mitral valve prolapse noted. M-MODE: MV: NORMAL AV: NORMAL TV: NORMAL PV: CHAMBER SIZE: NORMAL WALL MOTION: NORMAL PERICARDIUM: NORMAL INTERPRETATION: 1. NORMAL VALVES 2. NORMAL LEFT VENTRICULAR CONTRACTILITY 3. NORMAL LEFT VENTRICLE AND LEFT ATRIAL SIZE MTDD
--- NOTE | 2018-08-29 13:10 | PCM.PROG ---
Subjective: 53 yo WF with SOA and breathing difficulty without history of asthma, without history of COPD, presented with recent likely viral URI to [employer] [facility] rx penicillin V for sinusitis and strep. STrep was negative x 2, Office and ER. Flu negative. CT PE protocol showed negative, no PE, no other reports. Mild WBC elevation yesterday 10.8 now 9.28 this am, Hgb 12.6 today, plt 184. Sodium 143.7, Potassium better up from 3.16 to 3.48 Cl 111.6, BUN 9.6, Cr 0.61. Calcium 8.25 corrects to 8.44. TSH normal 1.610, procalc negative, lactate normal. A1C 5.48. This am she seemed to be doing okay, rounded first time at 7 am and then again at 12;15. I had them walk with her and she will not breath. BMI of 50, she will not breath deep, minimal effort, minimal attempts at deep inspiration. I talked with Radiology semiconductor testing group leader and personally looked at the CT imaging. I noted right sided hemidiaghragm elevation, broncial wall thickening and he agreed. I noted that this seems almost like atelectasis because she will not breath deep. He looked more closely and she had some subsegmental atelectasis. I ordered an Echocardiogram, which returned normal. She has no stridor, no e/o lip/tongue/mouth swelling. I talked about going home with home O2 and bronchodilators, she did not want that. I have ordered RSV. This is viral but patient does not want to go home. I would like home O2 and home bronchodilators. I do not feel she needs to stay here. I have ordered repeat CT scan. Objective: Vitals: T=98.3 F, P=95, R=24, MH=111/86, SPO2=99 HEENT: [] Neck: [] Lungs: [] CVS: [] Abdomen: [] Extremities: [] Neurological: [] Skin: [] Lab/Tests/Diagnostic Imaging: [] (1) Dyspnea and respiratory abnormality Status: Acute Code(s): R06.00 - DYSPNEA, UNSPECIFIED; R06.89 - OTHER ABNORMALITIES OF BREATHING SNOMED Code(s): 315948361 (2) Pharyngitis Status: Acute Code(s): J02.9 - ACUTE PHARYNGITIS, UNSPECIFIED SNOMED Code(s) : 788116169 (3) Acquired hypothyroidism Status: Acute Code(s): E03.9 - HYPOTHYROIDISM, UNSPECIFIED SNOMED Code(s): 190111751 (4) BMI 50.0-59.9, adult Status: Acute Code(s): Z68.43 - BODY MASS INDEX (BMI) 50-59.9, ADULT SNOMED Code(s): 198257130 (5) GERD (gastroesophageal reflux disease) Status: Acute Code(s): K21.9 - GASTRO-ESOPHAGEAL REFLUX DISEASE WITHOUT ESOPHAGITIS SNOMED Code(s): 266883392 (6) Wheezing Status: Acute Code(s): R06.2 - WHEEZING SNOMED Code(s): 61615492 (7) Hypernatremia Status: Acute Code(s): E87.0 - HYPEROSMOLALITY AND HYPERNATREMIA SNOMED Code (s): 50311599 (8) Hypokalemia Status: Acute Code(s): E87.6 - HYPOKALEMIA SNOMED Code(s): 06659834 (9) Penicillin adverse reaction Status: Acute Code(s): T36.0X5A - ADVERSE EFFECT OF PENICILLINS, INITIAL ENCOUNTER SNOMED Code(s): 240669462
[2018-08-29] MEDS ORDERED: POTASSIUM CHLORIDE 10 MEQ VIAL IV ONE (13:39)
[2018-08-29] MEDS: POTASSIUM CHLORIDE 10 MEQ VIAL 10 MEQ in SODIUM CHLORIDE 1,000 ML IV SCH ×2 (13:43→13:46)
--- NOTE | 2018-08-29 14:35 | CT ---
EXAM: CT THORAX HISTORY: Worsening shortness of breath. TECHNIQUE: CT thorax without intravenous contrast. Multiplanar images presented. COMPARISON: 1 day earlier FINDINGS: Normal heart size. Trace pericardial effusion. Mild atherosclerotic disease including the coronary level. Venous access catheter ends in the right atrium. Chronically elevated right hemidiaphragm. Interval development of mild density in the posterior righ t lung base and subtle density in the anterior left upper lobe. Lungs are otherwise clear. Normal v ascularity. No pleural fluid or pneumothorax. The bones reveal osteophytic spurring of the thoracic spine. Cholelithiasis. IMPRESSION: 1. Probable mild pneumonia in the left upper lobe and right lung base posteriorly. 2. Atherosclerosis.
--- NOTE | 2018-08-29 14:37 | PCM.PROG ---
Subjective: 53 yo WF with SOA and breathing difficulty without history of asthma, without history of COPD, presented with recent likely viral URI to [employer] [facility] rx penicillin V for sinusitis and strep. STrep was negative x 2, Office and ER. Flu negative. CT PE protocol showed negative, no PE, no other reports. Mild WBC elevation yesterday 10.8 now 9.28 this am, Hgb 12.6 today, plt 184. Sodium 143.7, Potassium better up from 3.16 to 3.48 Cl 111.6, BUN 9.6, Cr 0.61. Calcium 8.25 corrects to 8.44. TSH normal 1.610, procalc negative, lactate normal. A1C 5.48. This am she seemed to be doing okay, rounded first time at 7 am and then again at 12;15. afebrile entrie stay, HR79-95 today. BP 118/74, 135 /86, 138/80. RR 18-24. Tele NSR, Voids x5, accucheck last 223 and 131. Reviewed am and overnight nurses notes. I had them do 3 step oxygen testing with her and she did desaturate to 87%. She is not breathing deeply. BMI of 50. Overall minimal effort, minimal attempts at deep inspiration. I talked with Radiology sewer connector and personally looked at the CT images. I noted right sided hemidiaghragm elevation, bronchial wall thickening and he agreed. I noted that this seemed most likely atelectasis because she will not breath deeply. He looked more closely and she had some subsegmental atelectasis. I ordered an Echocardiogram, which returned normal. She has no stridor, no e/o lip/tongue/mouth swelling, no rash. I talked about going home with home O2 and bronchodilators, she did not want that. I have ordered RSV this was negative. I would love to get viral PCR as human metapneumovirus is going around but it will take 3 days to get this back. This is likely viral but patient does not want to go home, does not feel comfortable. I noted it is hard to justify another night stay with O2 >92% on 2L, we can do home O2. This was set up and delivered today. I also ordered neb machine. . I would like home O2 and home bronchodilators. I do not feel she needs to stay here. I have ordered repeat CT scan. 1436 daughter not happy with patient plan to d/c home. I ahve written order for home O2. I have written order for home neb machine. Admin has reached out to me about d/c this patient. 1437 patient IV now infiltrated and entire tip is out of the arm. Return evalution 1800 for rash on arm. #3 urticarial wheel/flare like lesions on her right medial forearm. Discussed cool compress. Her symptoms do not match her labs. Her wheezing/breathing status do not match her labs/imaging/vitals. She is not breathing deeply, she is scared and I discussed with patient that the scenario is odd. She was asked if she took another PCN after being asked not to. She said she has not taken any further abx. Overnight tele was fine. Voiding. REVIEW OF SYMPTOMS: (Positives bolded) General: weight loss, fever, chills, night sweats, fatigue, appetite loss HEENT: blurry vision, eye pain, eye discharge, dry eyes, decreased vision, sore throat tinnitus, bloody nose, hearing loss, sinus pain/pressure, ear pain/ pressure. Respiratory: shortness of breath, cough, hemoptysis, wheezing, pleurisy, Cardiovascular: chest pain, PND, palpitation, edema, orthopnea, syncope, swelling of extremities Gastro: Nausea, vomiting, diarrhea, hematemesis, abdominal pain, constipation Genito: hematuria, dysuria, glycosuria, hesitancy, frequency, incontinence [place]: Arthralgia (CHRONIC), myalgia, muscle weakness, joint swelling, NSAID use Skin: rash, pruritis (RIGHT ARM), sores, nail changes, skin thickening, change in wart/mole, itching, rash, new lesions, pruritus, nail changes Neuro: Migraine, numbness, ataxia, tremor, vertigo, weakness, memory loss, Irritability, dizziness Endocrine: excessive thirst, polyuria, cold intolerance, heat intolerance, goiter Psychiatric: depression, anxiety, anti-depressants, alcohol abuse, drug abuse, insomnia, change in sleep pattern and mood changes Heme/lymph: easy bruising, bleeding gums, blood clots, swollen glands, lymphedema, Allergic/immune: allergic rhinitis, hay fever, asthma, hives Objective: Vital Signs - 24 hr 08/29/18 08/29/18 08/29/18 14:00 18:00 20:00 Temperature 98.1 F 98.3 F Pulse Rate 87 90 Respiratory 20 20 18 Rate Blood Pressure 138/80 134/84 O2 Sat by Pulse 98 98 Oximetry 08/29/18 21:18 Temperature 97.6 F Pulse Rate 70 Respiratory 20 Rate Blood Pressure 118/75 O2 Sat by Pulse 97 Oximetry Constitutional: Appearance-Mild distress respiratory, not breathing deeply. Orientation- Oriented x 3, alert Build and Nutrition- Morbid obesity BMI 50.2. General- Patient is flat, not wanting to go home, fearful that we will d/c. Integumentary: General-No rashes, ulcers or lesions. Palpation- Normal skin moisture/turgor. Skin is warm to touch, appropriate. Capillary refill is normal bilateral Upper and lower extremity. Rash on right arm resolved. RASH 1800 right forearm, #3 wheel/flare lesions right forearm. Cool Compresses applied No other rash noted. She had been scratching them so a physical urticaria is not unreasonable. Head/Neck: Head- normocephalic and atraumatic. Neck- without visible/palpable lumps or pulsations. Palpation- No bony tenderness about head/neck along frontal, occipital, temporal, parietal, mastoid, jawline, zygoma, orbit or any other location. NO temporal artery tenderness. No TMJ tenderness. Neck Supple. Thyroid-No thyromegaly, no nodules ENMT: Nares- bilateral quiet airflow, no discharge. Nasal mucosa- No bleeding noted and no ulcerations observed. [place], moist. Turbinates non boggy. Lips- normal color, moist without cracks/lesions Oral Cavity/Palate- hard/soft palate intact without lesions, oral mucosa pink and moist. Tongue normal midline. Oropharynx- Minimal pharyngeal erythema, Post nasal drainage. No exudate. Salivary glands- Non tender to palpation CHEST/LUNG: Inspection- symmetric chest wall no pectus deformity. Normal effort , no distress, no use of accessory muscles. Palpation- nontender sternum, ribline. No abnormal pulsations. Auscultation- Breath sounds diminished coarse , scattered wheezes, rhonchi. tracheal sounds, bronchial sounds overlying sternum, Bronchovessicular sounds between scapulae posteriorly, vessicular breath sounds heard throughout periphery worse than 08/28/18 which makes no sense. CBC negative< CT PE protocol stated CLEAR. I looked at images and right hemidiaphragm and atelectasis. I believe she has worsened as she is not breathin. But she has no fever. Adventitious sounds- appreciable wheezes, w/o rales, + rhonchi. NO egophany, no whispered pectoriloquy. CARDIOVASCULAR: Carotid artery- normal, no bruits or abnormal pulsations. Jugular vein- no pulsations. Palpation/Percussion- Normal PMI, no palpable thrill Auscultation- Regular rate and rhythm. No murmur noted in sitting, supine positions. Extremities- no digital clubbing, cyanosis, edema, increased warmth. ECHO WAS NEGATIVE ABDOMEN: Inspection- normal and no visible pulsations. Normal contour. Auscultation- Bowel sounds normal, no abdominal bruits. Palpation/Percussion- soft, non-tender, no rebound tenderness, no rigidity (guarding), no jar tenderness, no masses. Liver-no hepatomegaly, Spleen no splenomegaly, Hernias - none. Rectal not examined. Peripheral Vascular: Upper extremity Left- Normal temperature with pink nailbeds and no ulcerations. Upper extremity Right- Normal temperature with pink nailbeds and no ulcerations. Lower extremity- Normal temperature with pink nailbeds and no ulcerations. DP pulses 2+ bilaterally. Pedal hair intact. Normal capillary refill. Edema- No edema. Musculoskeletal: Generalized-No generalized swelling or edema of extremities, no digital clubbing or cyanosis, neurovascularly intact all four extremities. Neurological: General- Moves all 4 extremities symmetrically. Symmetrical face and body posture. Cranial nerves- individually evaluated II-XII and intact. PERRLA, Normal EOMI, visual/special senses appear intact, Face is symmetrical and normal sensation/movement, normal tongue, normal strength/posture of neck musculature. Neuropsych: Oriented- Person, place, time. (AAOx3), Mood/affect- Afraid, flat. Does not want to go home Speech-Normal speech, normal rate, normal tone, normal use of language, volume and coherence. Thought content- normal with ability to perform basic computations and apply abstract thought/reason. Associations- intact, no SI/HI, no hallucinations, delusions, obsessions. Judgment/insight- Appropriate. Memory-Recall intact, remote and recent memory intact. Knowledge- Age appropriate fund of knowledge, concentration and attention span normal. Lymphatic: Head/Neck- normal size and non tender to palpation. Laboratory Last Values WBC 9.28 K/ul (4.6-10.2) 08/29/18 05:20 RBC 4.52 10^6/ul (4.20-5.40) 08/29/18 05:20 Hgb 12.6 g/dl (12.0-16.0) 08/29/18 05:20 Hct 38.3 % (37.0-47.0) 08/29/18 05:20 MCV 84.7 fl (81.0-99.0) 08/29/18 05:20 MCH 27.9 pg (27.0-31.0) 08/29/18 05:20 MCHC 32.9 (31.8-35.4) 08/29/18 05:20 RDW Coeff of Krishna 13.9 % (11.6-14.8) 08/29/18 05:20 Plt Count 184 10^3/uL (140-440) 08/29/18 05:20 Immature Gran % (Auto) 0.5 % (0.0-5.0) 08/29/18 05:20 Neut % (Auto) 67.4 08/29/18 05:20 Lymph % (Auto) 24.0 (10.0-50.0) 08/29/18 05:20 Tyrrell % (Auto) 5.5 (0-10) 08/29/18 05:20 Eos % (Auto) 2.4 % (0.0-7.0) 08/29/18 05:20 Baso % (Auto) 0.2 % (0.0-3.0) 08/29/18 05:20 Immature Gran # (Auto) 0.1 (0.0-1.0) 08/29/18 05:20 Neut # (Auto) 6.3 K/ul (2.0-6.9) 08/29/18 05:20 Lymph # (Auto) 2.2 K/uL (0.60-3.4) 08/29/18 05:20 Tyrrell # (Auto) 0.5 K/uL (0.4-2.0) 08/29/18 05:20 Eos # (Auto) 0.2 K/ul (0.0-0.7) 08/29/18 05:20 Baso # (Auto) 0.0 K/uL (0-0.2) 08/29/18 05:20 Puncture Site L radial 08/29/18 15:30 O2 Saturation 93.0 % (95-100) L 08/29/18 15:30 ABG pH 7.398 (7.35-7.45) 08/29/18 15:30 ABG pCO2 38.9 mmHg (35-45) 08/29/18 15:30 ABG pO2 67.0 mmHg (85-100) L 08/29/18 15:30 ABG HCO3 24 (22.0-26.0) 08/29/18 15:30 ABG Total CO2 25 (22.0-28.0) 08/29/18 15:30 ABG Base Excess -1 (-2.0-2.0) 08/29/18 15:30 Willie Test + 08/29/18 15:30 O2 Delivery Device Nc 08/28/18 15:37 Oxygen Liter Flow 2.00 08/28/18 15:37 FiO2 % 21.0 % 08/29/18 15:30 Sodium 143.7 mmol/L (134.5-145) 08/29/18 05:20 Potassium 3.48 mmol/L (3.5-5.1) L 08/29/18 05:20 Chloride 111.6 mmol/L (98-107) H 08/29/18 05:20 Carbon Dioxide 24.2 mmol/L (22-30.0) 08/29/18 05:20 Anion Gap 11.38 08/29/18 05:20 BUN 9.6 mg/dL (7-17) 08/29/18 05:20 Creatinine 0.61 mg/dL (0.60-1.30) 08/29/18 05:20 Estimated GFR (MDRD) 102.00 mL/min 08/29/18 05:20 BUN/Creatinine Ratio 15.73 08/29/18 05:20 Glucose 100.7 mg/dL (74-106) 08/29/18 05:20 Hemoglobin A1c 5.48 (4.0-6.0) 08/29/18 05:20 Lactic Acid 1.59 mmol/L (0.7-2.1) 03/14/19 20:39 Calcium 8.25 mg/dL (8.4-10.2) L 08/29/18 05:20 Total Bilirubin 1.01 mg/dL (0.2-1.3) 08/29/18 05:20 AST 22.4 U/L (14-36) 08/29/18 05:20 ALT 27.1 U/L (0-35) 08/29/18 05:20 Alkaline Phosphatase 111.2 U/L (38-126) 08/29/18 05:20 Total Creatine Kinase 77.1 U/L (30-135) 08/28/18 15:45 Troponin I < 0.012 ng/ml (0.0000-0.120) 08/28/18 15:45 NT-Pro-B Natriuret Pep 186.000 pg/mL (0-124) H 08/28/18 20:30 Total Protein 6.84 g/dL (6.3-8.2) 08/29/18 05:20 Albumin 3.71 g/dL (3.5-5.0) 08/29/18 05:20 Globulin 3.13 08/29/18 05:20 Albumin/Globulin Ratio 1.18 08/29/18 05:20 Procalcitonin < 0.05 ng/mL (0.09) 08/28/18 20:39 TSH 1.610 uIU/L (0.465-4.68) 08/29/18 05:20 Influ A Molecular Assay Negative by naat (NEGATIVE) 08/28/18 15:43 Influ B Molecular Assay Negative by naat (NEGATIVE) 08/28/18 15:43 RSV Antigen Negative by naat (NEGATIVE) 08/29/18 12:55 CT chest without contrast: 08/29/18: probable mild pneumonia in left upper lobe and right lung base posteriorly. Atherosclerosis. RSV NEgative. HIV 4th gen ordered and pending (1) Dyspnea and respiratory abnormality Status: Acute Code(s): R06.00 - DYSPNEA, UNSPECIFIED; R06.89 - OTHER ABNORMALITIES OF BREATHING SNOMED Code(s): 013768929 (2) Pharyngitis Status: Resolved Code(s): J02.9 - ACUTE PHARYNGITIS, UNSPECIFIED SNOMED Code (s): 963871566 (3) Acquired hypothyroidism Status: Chronic Code(s): E03.9 - HYPOTHYROIDISM, UNSPECIFIED SNOMED Code(s) : 840147479 (4) BMI 50.0-59.9, adult Status: Chronic Code(s): Z68.43 - BODY MASS INDEX (BMI) 50-59.9, ADULT SNOMED Code(s): 195560575 (5) GERD (gastroesophageal reflux disease) Status: Chronic Code(s): K21.9 - GASTRO-ESOPHAGEAL REFLUX DISEASE WITHOUT ESOPHAGITIS SNOMED Code(s): 438950793 (6) Wheezing Status: Acute Code(s): R06.2 - WHEEZING SNOMED Code(s): 08281601 (7) Hypernatremia Status: Resolved Code(s): E87.0 - HYPEROSMOLALITY AND HYPERNATREMIA SNOMED Code(s): 88977139 (8) Hypokalemia Status: Acute Code(s): E87.6 - HYPOKALEMIA SNOMED Code(s): 75003734 (9) Penicillin adverse reaction Status: Acute Code(s): T36.0X5A - ADVERSE EFFECT OF PENICILLINS, INITIAL ENCOUNTER SNOMED Code(s): 115283936 Plan: Dyspnea and respiratory abnormality (Acute)/Wheezing (Acute): Etiology remains Unknown. Negative CT x1, ABG minimal issues, CBC has normalized, hypernatremia has normalized, hypokalemia is improving, hyperchloremia is still present but stable. Otherwise no abnl findings. Her breathing/exam is out of proportion to the vitals/imaging/labs. I have set her up with home O2 2L as needed. She saturates >92% on Oxygen but desats if off. This is very odd for someone w/o asthma, w/o COPD, RSV neg, flu neg,strep neg. Talked with colleague and they said consider viral PCR, which I had for other viral processes. Problem was this will not return for 3-4 days and the patient will be better by then. I would like to d/c home but she will not go, is fearful, family talked to me and they are afraid for her to go home. I talked about Weight as markedly elevated. We discussed again panic attack, we discussed GERD, Discussed again viral URI bronchospasm and possibilty of PCN. She denied takign another PCN. PE was r/o. I repeated CT afternoon 08/29/18 and patient had maybe MARY and RLL pneumonia. Abx added levaquin 750 and prednisone another 20mg given for total of 60mg yesterday. HIV 4th gen ordered off chance of PCP. Her dyspnea is odd, wheezing odd. It almost resembles with RSV. PCN added to allergy list. - admit obs keep overnight - duonebs q6 hours - albuterol q 2-4 hours - Prednisone up to 60 mg - Telemetry normal, continue to monitor - Stop all PCN - With her allergy levaquin 750 daily to be used. Ceftriaxone/doxy considered but will avoid the cephalosporin class for now. - I+O - Daily weight Penicillin Immediate Reaction: Stop PCN. This is a working dx. I would like her to meet with planning consultant as OP. - Monitor overnight - O2 92-98% titrate. - Stop Penicillin Acquired hypothyroidism (Acute): Stable and at Goal 1.0-3.0. - Continue home dose levothyroxine. BMI 50.0-59.9, adult (Acute): Discussed again, consider outpatient bariatric f/ u. GERD (gastroesophageal reflux disease) (Chronic): Continue zantac. Discussed foods, discussed recent GERD, she denied recent changes. No Panic, no sour taste , no choking. - Continue Home H2 raiza Hypernatremia: Resolved. Hypokalemia: IMproved overnight. Continue 20meq K+CL-. Consider CMP in 1 week. Pharyngitis (Acute): Improved. Strep negative. Code Status: Full Diet: 1800 kcal Regular DVT Prophy: Lovenox Disposition: Very odd issue where her exam out of proportion with all of the data. I will treat the patient and not the data. Talked with family, afraid for her to go home. I will keep her one more night. HOme o2 is set up, home neb is set up. Will d/c in am with neb albuterol q 4 hours, 4 days of levaquin , 5 days of steroids. F/U with PCP in 1 week. Bariatrics outpatient. CMP in 1 week. >35 minutes spent today discussing history, reviewing the Er note, talking with Er physician, reviewing outpatient note, reviewing labs. I saw patient 4x total 08/29/18.
[2018-08-29] MEDS ORDERED: LEVAQUIN 750 MG in PREMIX 150 ML D5W 1 BAG IV SCH (16:30)
[2018-08-29] MEDS ORDERED: PREDNISONE PO ONE (19:00)
[2018-08-29] MEDS: LEXAPRO PO SCH (20:52)
[2018-08-29] MEDS: DESYREL PO SCH (20:52)
[2018-08-30] MEDS ORDERED: POTASSIUM CHLORIDE 10 MEQ VIAL IV ONE (03:29)
[2018-08-30] MEDS: POTASSIUM CHLORIDE 10 MEQ VIAL 10 MEQ in SODIUM CHLORIDE 1,000 ML IV SCH ×2 (03:36→08:19)
[2018-08-30] MEDS: DUONEB NEB SCH (05:10)
[2018-08-30 05:22] VITALS: BP 106/67; TEMP 97.8
[2018-08-30] MEDS: SYNTHROID PO SCH (05:39)
--- NOTE | 2018-08-30 07:47 | PCM.DC ---
Final Diagnosis: Wheezing, Dyspnea and respiratory abnormality (Acute): Improved, home O2 2L and albuterol nebs q 4 hours pRN. Levaquin 750 daily x 4 days (1 day in hospital) and prednisone 40mg daily. No history of asthma or COPD. Hypernatremia (RESOLVED) Hypokalemia (Acute): Improved. D/C on potassium 20meq daily. CMP in 1 week. Acquired hypothyroidism (Chronic): Stable TSH BMI 50.0-59.9, adult (Chronic): Needs f/u, needs bariatric eval. GERD (gastroesophageal reflux disease) (Chronic): Stable on home meds. Penicillin adverse reaction (Acute): Possible early type reaction with anaphylaxis. NO rash however, Did not meet any criteria for anaphylaxis. Added PCN to allergy list. Pharyngitis (Acute): Suspect post nasal drainage, improved. Elevated BNP: Minimal elevation. No peripheral edema. She has had a normal Echocardiogram during this hospital stay. Admitted on 08/28/18: Dr. Teague Discharged on 08/30/18: Dr. Teague (1) Dyspnea and respiratory abnormality Status: Acute Code(s): R06.00 - DYSPNEA, UNSPECIFIED; R06.89 - OTHER ABNORMALITIES OF BREATHING SNOMED Code(s): 546351935 (2) Pharyngitis Status: Resolved Code(s): J02.9 - ACUTE PHARYNGITIS, UNSPECIFIED SNOMED Code (s): 063590892 (3) Acquired hypothyroidism Status: Chronic Code(s): E03.9 - HYPOTHYROIDISM, UNSPECIFIED SNOMED Code(s) : 890640097 (4) BMI 50.0-59.9, adult Status: Chronic Code(s): Z68.43 - BODY MASS INDEX (BMI) 50-59.9, ADULT SNOMED Code(s): 356180722, 588711797 (5) GERD (gastroesophageal reflux disease) Status: Chronic Code(s): K21.9 - GASTRO-ESOPHAGEAL REFLUX DISEASE WITHOUT ESOPHAGITIS SNOMED Code(s): 968382174 (6) Wheezing Status: Acute Code(s): R06.2 - WHEEZING SNOMED Code(s): 29125209 (7) Hypernatremia Status: Resolved Code(s): E87.0 - HYPEROSMOLALITY AND HYPERNATREMIA SNOMED Code(s): 97797942 (8) Hypokalemia Status: Acute Code(s): E87.6 - HYPOKALEMIA SNOMED Code(s): 20609642 (9) Penicillin adverse reaction Status: Acute Code(s): T36.0X5A - ADVERSE EFFECT OF PENICILLINS, INITIAL ENCOUNTER SNOMED Code(s): 204616144 Reason for Hospitalization: Shortness of breath, wheezing, concern for penicillin reaction. Prognosis at Discharge: Markedly improved, vitals normal/stable at discharge. This am she was off oxygen and breathing better. Rash on right forearm yesterday pm around 1800 resolved w/ cold compresses at my recommendation. She is doing fine, ready to leave and feeling much better. Condition at Discharge: Stable/Improved and ready for discharge. Medically optimized with hospitalization and ready for discharge. Medications at Discharge: Ambulatory Orders Medication Instructions Recorded Cholecalciferol (Vitamin D3) 50,000 unit PO WEEKLY 08/27/18 [Vitamin D3] Cyanocobalamin (Vitamin B-12) 500 mcg PO DAILY 08/27/18 [B-12] Diclofenac Sodium 75 mg PO DAILY 08/27/18 Escitalopram Oxalate 10 mg PO BEDTIME 08/27/18 Famotidine [Pepcid] 20 mg PO 1-3XD 08/27/18 Furosemide 20 mg PO DAILY 08/27/18 Levothyroxine Sodium 25 mcg PO DAILY 08/27/18 Trazodone HCl 50 mg PO BEDTIME 08/27/18 Albuterol Sulfate 0.083% Neb 1 vial NEB Q4H PRN 7 Days #30 08/30/18 [Albuterol 0.083% Neb] vial.neb Levofloxacin [Levaquin] 750 mg PO DAILY 4 Days #4 tablet 08/30/18 Potassium Chloride [K-Dur] 20 meq PO ONCE 30 Days #30 tab 08/30/18 Prednisone 40 mg PO DAILYWM 5 Days #10 tablet 08/30/18 Lab/Diagnostics: Laboratory Last Values WBC 9.28 K/ul (4.6-10.2) 08/29/18 05:20 RBC 4.52 10^6/ul (4.20-5.40) 08/29/18 05:20 Hgb 12.6 g/dl (12.0-16.0) 08/29/18 05:20 Hct 38.3 % (37.0-47.0) 08/29/18 05:20 MCV 84.7 fl (81.0-99.0) 08/29/18 05:20 MCH 27.9 pg (27.0-31.0) 08/29/18 05:20 MCHC 32.9 (31.8-35.4) 08/29/18 05:20 RDW Coeff of Krishna 13.9 % (11.6-14.8) 08/29/18 05:20 Plt Count 184 10^3/uL (140-440) 08/29/18 05:20 Immature Gran % (Auto) 0.5 % (0.0-5.0) 08/29/18 05:20 Neut % (Auto) 67.4 08/29/18 05:20 Lymph % (Auto) 24.0 (10.0-50.0) 08/29/18 05:20 [place] % (Auto) 5.5 (0-10) 08/29/18 05:20 Eos % (Auto) 2.4 % (0.0-7.0) 08/29/18 05:20 Baso % (Auto) 0.2 % (0.0-3.0) 08/29/18 05:20 Immature Gran # (Auto) 0.1 (0.0-1.0) 08/29/18 05:20 Neut # (Auto) 6.3 K/ul (2.0-6.9) 08/29/18 05:20 Lymph # (Auto) 2.2 K/uL (0.60-3.4) 08/29/18 05:20 [place] # (Auto) 0.5 K/uL (0.4-2.0) 08/29/18 05:20 Eos # (Auto) 0.2 K/ul (0.0-0.7) 08/29/18 05:20 Baso # (Auto) 0.0 K/uL (0-0.2) 08/29/18 05:20 Puncture Site L radial 08/29/18 15:30 O2 Saturation 93.0 % (95-100) L 08/29/18 15:30 ABG pH 7.398 (7.35-7.45) 08/29/18 15:30 ABG pCO2 38.9 mmHg (35-45) 08/29/18 15:30 ABG pO2 67.0 mmHg (85-100) L 08/29/18 15:30 ABG HCO3 24 (22.0-26.0) 08/29/18 15:30 ABG Total CO2 25 (22.0-28.0) 08/29/18 15:30 ABG Base Excess -1 (-2.0-2.0) 08/29/18 15:30 Willie Test + 08/29/18 15:30 O2 Delivery Device Nc 08/28/18 15:37 Oxygen Liter Flow 2.00 08/28/18 15:37 FiO2 % 21.0 % 08/29/18 15:30 Sodium 143.7 mmol/L (134.5-145) 08/29/18 05:20 Potassium 3.48 mmol/L (3.5-5.1) L 08/29/18 05:20 Chloride 111.6 mmol/L (98-107) H 08/29/18 05:20 Carbon Dioxide 24.2 mmol/L (22-30.0) 08/29/18 05:20 Anion Gap 11.38 08/29/18 05:20 BUN 9.6 mg/dL (7-17) 08/29/18 05:20 Creatinine 0.61 mg/dL (0.60-1.30) 08/29/18 05:20 Estimated GFR (MDRD) 102.00 mL/min 08/29/18 05:20 BUN/Creatinine Ratio 15.73 08/29/18 05:20 Glucose 100.7 mg/dL (74-106) 08/29/18 05:20 Hemoglobin A1c 5.48 (4.0-6.0) 08/29/18 05:20 Lactic Acid 1.59 mmol/L (0.7-2.1) 08/28/18 20:39 Calcium 8.25 mg/dL (8.4-10.2) L 08/29/18 05:20 Total Bilirubin 1.01 mg/dL (0.2-1.3) 08/29/18 05:20 AST 22.4 U/L (14-36) 08/29/18 05:20 ALT 27.1 U/L (0-35) 08/29/18 05:20 Alkaline Phosphatase 111.2 U/L (38-126) 08/29/18 05:20 Total Creatine Kinase 77.1 U/L (30-135) 08/28/18 15:45 Troponin I < 0.012 ng/ml (0.0000-0.120) 08/28/18 15:45 NT-Pro-B Natriuret Pep 186.000 pg/mL (0-124) H 08/28/18 20:30 Total Protein 6.84 g/dL (6.3-8.2) 08/29/18 05:20 Albumin 3.71 g/dL (3.5-5.0) 08/29/18 05:20 Globulin 3.13 08/29/18 05:20 Albumin/Globulin Ratio 1.18 08/29/18 05:20 Procalcitonin < 0.05 ng/mL (0.09) 08/28/18 20:39 TSH 1.610 uIU/L (0.465-4.68) 08/29/18 05:20 Influ A Molecular Assay Negative by naat (NEGATIVE) 08/28/18 15:43 Influ B Molecular Assay Negative by naat (NEGATIVE) 08/28/18 15:43 RSV Antigen Negative by naat (NEGATIVE) 08/29/18 12:55 H/H Trends 08/28/18 08/29/18 Range/Units 15:38 05:20 Hgb 14.1 12.6 (12.0-16.0) g/dl Hct 43.2 38.3 (37.0-47.0) % WBC Trends 08/28/18 08/29/18 Range/Units 15:38 05:20 WBC 10.82 H 9.28 (4.6-10.2) K/ul Na/K Trends 08/28/18 08/29/18 Range/Units 15:45 05:20 Sodium 146.3 H 143.7 (134.5-145) mmol/L Potassium 3.16 L 3.48 L (3.5-5.1) mmol/L CXR: Negative for pneumonia CT Chest 08/28/18: No e/o Pulmonary embolux, lungs are clear. NO effusion or pneumothorax. Aorta mild atherosclerosis. No dissection, no aneursym. Splenule near the spleen. No bony issues. Gallstones w/o inflammation. CT chest without contrast: 08/29/18: probable mild pneumonia in left upper lobe and right lung base posteriorly. Atherosclerosis. Echocardiogram 08/29/18: normal valves, normal left ventricular contracility, normal ejection fraction/left atrial size. Microbiology: Strep was negative. Flu was negative. RSV was negative HIV: PENDING Culture Blood Negative x 1 day. Education Provided to Patient and Family: 1. Discussed Viral URI 2. Discussed when to use antibiotics, to not use with viral process, to not use abx if tests are negative. 3. Weight loss and consider bariatrics. 4. Reviewed antibiotic regimens for pneumonia: With recent PCN concern, will avoid cephalosporins. Will use levaquin and steroid. R/B/A to this d/w patient , discussed risks of levaquin alone, especially in light of recent data. Discussed risks of levaquin + steroid. Steroid R/B/A d/w patient as well. She was instructed tylenol for fever. NO NSAIDS x 1 week. 5. Home O2: 2 L. MOre is not better. Discussed O2 toxicity. Follow-ups: 1. PCP in 1 week 2. CMP in 1 week Disposition: HOME SELF-CARE Hospital Course: 53 yo CF patient of Maryjane Grayson was seen recently by LITZY Carl in clinic this week w/ ~48 hour history of URI/sore throat. Suspected viral etiology, strep negative, was given rx for PCN V 500 TID and took 2 doses day of visit and then another am of 08/28/18 and presented to ER and met with Dr. Esteban. LITZY Carl note reviewed and found that patient had sore throat, painful swallowing, itchy/watery eyes, productive cough w/ yellow sputum, sneezing, nasal drainage, body aches, nasal drainage, HERNANDEZ x 24 hours. History noted fear of strep as she had this in the past. No fever, no chills, no N/V/D/ Constipation rash or dysuria. OTC allergy meds utilized, exposed to flu. Weight 259 in clinic, Temp 98.4, R 16, BP 132/88. She was dx with acute non- recurrent maxillary sinusitis despite only 24-48 hours of symptoms and started on Pencillin V Potassium 500 TID x 7 days and prednisone 20mg PO Daily 2 days # 4. No known allergies to meds. I reviewed this note, no mention of Centor criteria which if reviewed suggested strep less likely, lack of tonsils as they were surgically removed suggested strep less likely. Presented to ED 15:30 08/28 w/ SOA, wheezing, onset am upon awakening. She met with Dr. Esteban d/w him the clinic evthierno. SALAS, worsening throughout am and arrived in ER as noted ~ 1530. No tobacco history, no history of lung disease, no asthma, no COPD, no chemical exposures, no inhalational exposures. Was treated for similar symptom several years ago when she had h/o colon cancer. NO allergy to abx. Temp 98.7, HR 106, RR 20, BP 153/88, O2 90%. WBC 10.82, hgb 14.1, hcg 43.2, plt 193. ABG ph 7.366, O2 saturation 95%, 45.4 pc02, hco3 26, and represented primary respiratory acidosis chronic with secondary metabolic acidosis. WBC was minimally elevated. She did not meet SIRS criteria. Chloride was mildly elevated, non specific. Anion Gap of 10.4 mEq/L Delta Ratio 0.3 mEq/L suggests hyperchloremic normal anion gap acidosis. Corrected Gap for albumin was 10.0. Sodium 146.3 and mildly elevated. K+ 3.16 and mildly low. Cl 107.1 and mildly high. glucose 130.8. Bili 1.31. Calcium 8.63. Procalcitinon negative, lactic acid negative. CK 77.1 Trop I was <0.012. They checked a Flu which was negative. Within ER she received neb treatment at 1530, 20:09, oxygen was added. Glucose monitoring was added. ABG done 15:38. Rapid strep was repeated in ER (negative in clinic and ER). TSH checked and normal. Was given solu- cortef 250mg 08/28/18 16:00 duoneb 15:30, K dur 20meq given. Dr. Esteban called me just after 19:59 and informed me about the patient. Moderate to severe symptoms, SALAS at rest and with exertion. Worse w/ movement, recumbent position, no alleviating factors. Cough/wheezing, SOA, hard to capture breath. Moderate respiratory distress, asthma, PE, anaphylaxis, bronchospasm were all on the list. She has not inhaled anything, only new medication was the PCN. She has no rash, no fever, no SIRS criteria, no neuro changes, no MSK issues, no GI issues, No issues, did not meet criteria for any of the subtypes of anahylaxis. PMH hypothyroid stable, arthritis stable and colon cancer historical, regular colonoscopies and stable. No drugs, no ETOH, no smoking. Daughter tomy present, permission given to speak freely. 2 doses of abx yesterday, 1 this am. She had symptoms ~1.5-2 hours after dose and has worsened. Took no more. Concern for PCN allergy. No rash. She has SALAS, Orthopnea. No CP, no vision changes, no syncope. CXR was negative. CT chest for PE protcol returned negative. I admitted for overnight observation, nebs throughout night, O2 to keep sats >90. Next am she felt worse, more wheezing, more SOA. Medically this did not make sense as second CBC completely normal, CMP hypernatremia resolved, hypokalemia improved greatly. CBC dropped from 10.8 to 9.28, Hgb stable at 12.6 and plt stable at 184. TSH was normal, markers of infection/sepsis negative. BLood cultures were pending returned 08/30/18 am negative. I added RSV which returned negative. I personally looked at CT chest and saw right hemidiaphragm, non specific, some subsegmental atelectasis. I suspected viral pneumonia vs air trapping and set her up with home O2 and home nebs. She did not want this, did not feel okay, did not want to leave. Repeat ABG showed normal pH, normal CO2 but Po2 60'S and she desaturated to 87% with three phase ambulation. I repeated CT of chest without contrast and talked with radiology, maybe pneumonia MARY and along RLL. With recent PCN problems, I decided against doxy/ ceftriaxone combo and used levaquin. R/B/A to levaquin (FQ+Steroid) d/w patient. New literature for aortic compromised, in addition to tendonous involvement mentioned specifically. Handouts on these provided. Patient vitals reviewed throughout stay, BP stable, HR somewhat tachycardic but normal appearing on telemetry, she had no fever throughout stay. Plan to d/c home yesterday did not work out, home orders completed and O2/neb machine are in her hospital room. 1437 as we were talking about going home, her IV got pulled out and she called nurse. 18:00 she had urticarial like rash on arm and could not stop scratching. Wheel/flare like reaction was present. I had them apply cool compress and am 08/30/18 this was resolved. Overnight vitals same as 08/29/18. Am of 08/30/18 she felt better, she had no O2 on when I arrived, she was breathing more comfortably. Good urine output, no BM while in hospital, vitals normalized/stabilized. No new labs available am of 08/30/18. I did order HIV off chance she had PCP. She will be d/c home today, improved with suspect viral pneumonia but CT e/o w/ possibility of bacterial process. Levaquin 750 daily x 5 days. She will get #4 as she got levaquin yesterday. 5 days of steroids. ALbuterol q 4 hours prn, O2 at 2L PRN> Discussed do not turn that up , oxygen can be toxic. Day of D/C Exam: Vital Signs - 24 hr 08/29/18 08/29/18 08/29/18 14:00 18:00 20:00 Temperature 98.1 F 98.3 F Pulse Rate 87 90 Respiratory 20 20 18 Rate Blood Pressure 138/80 134/84 O2 Sat by Pulse 98 98 Oximetry 08/29/18 08/30/18 08/30/18 21:18 02:00 05:21 Temperature 97.6 F 98.5 F 97.8 F Pulse Rate 70 77 66 Respiratory 20 22 16 Rate Blood Pressure 118/75 107/71 106/67 O2 Sat by Pulse 97 95 95 Oximetry onstitutional: Appearance-No acute distress, Consistent with stated age. Orientation- Oriented x 3, alert Build and Nutrition- Morbid obesity BMI 50.2. General- Patient is pleasant and cooperative with the interview and exam. Integumentary: General-No rashes, ulcers or lesions. Palpation- Normal skin moisture/turgor. Skin is warm to touch, appropriate. Capillary refill is normal bilateral Upper and lower extremity. Rash on right arm resolved. Head/Neck: Head- normocephalic and atraumatic. Neck- without visible/palpable lumps or pulsations. Palpation- No bony tenderness about head/neck along frontal, occipital, temporal, parietal, mastoid, jawline, zygoma, orbit or any other location. NO temporal artery tenderness. No TMJ tenderness. Neck Supple. Thyroid-No thyromegaly, no nodules ENMT: Nares- bilateral quiet airflow, no discharge. Nasal mucosa- No bleeding noted and no ulcerations observed. [place], moist. Turbinates non boggy. Lips- normal color, moist without cracks/lesions Oral Cavity/Palate- hard/soft palate intact without lesions, oral mucosa pink and moist. Tongue normal midline. Oropharynx- Minimal pharyngeal erythema, Post nasal drainage. No exudate. Salivary glands- Non tender to palpation CHEST/LUNG: Inspection- symmetric chest wall no pectus deformity. Normal effort , no distress, no use of accessory muscles. Palpation- nontender sternum, ribline. No abnormal pulsations. Auscultation- Breath sounds diminished coarse , scattered wheezes, rhonchi. tracheal sounds, bronchial sounds overlying sternum, Bronchovessicular sounds between scapulae posteriorly, vessicular breath sounds heard throughout periphery better than 08/29/18 but still coarse. Adventitious sounds- appreciable wheezes, w/o rales, + rhonchi. NO egophany, no whispered pectoriloquy. CARDIOVASCULAR: Carotid artery- normal, no bruits or abnormal pulsations. Jugular vein- no pulsations. Palpation/Percussion- Normal PMI, no palpable thrill Auscultation- Regular rate and rhythm. No murmur noted in sitting, supine positions. Extremities- no digital clubbing, cyanosis, edema, increased warmth. ABDOMEN: Inspection- normal and no visible pulsations. Normal contour. Auscultation- Bowel sounds normal, no abdominal bruits. Palpation/Percussion- soft, non-tender, no rebound tenderness, no rigidity (guarding), no jar tenderness, no masses. Liver-no hepatomegaly, Spleen no splenomegaly, Hernias - none. Rectal not examined. Peripheral Vascular: Upper extremity Left- Normal temperature with pink nailbeds and no ulcerations. Upper extremity Right- Normal temperature with pink nailbeds and no ulcerations. Lower extremity- Normal temperature with pink nailbeds and no ulcerations. DP pulses 2+ bilaterally. Pedal hair intact. Normal capillary refill. Edema- No edema. Musculoskeletal: Generalized-No generalized swelling or edema of extremities, no digital clubbing or cyanosis, neurovascularly intact all four extremities. Neurological: General- Moves all 4 extremities symmetrically. Symmetrical face and body posture. Cranial nerves- individually evaluated II-XII and intact. PERRLA, Normal EOMI, visual/special senses appear intact, Face is symmetrical and normal sensation/movement, normal tongue, normal strength/posture of neck musculature. Neuropsych: Oriented- Person, place, time. (AAOx3), Mood/affect- Afraid, flat. Saddened about brother who had 3 CA yesterday. Speech-Normal speech, normal rate , normal tone, normal use of language, volume and coherence. Thought content- normal with ability to perform basic computations and apply abstract thought/ reason. Associations- intact, no SI/HI, no hallucinations, delusions, obsessions. Judgment/insight- Appropriate. Memory-Recall intact, remote and recent memory intact. Knowledge- Age appropriate fund of knowledge, concentration and attention span normal. Lymphatic: Head/Neck- normal size and non tender to palpation. Plan: 1. Finish 4 days of antibiotics 2. Finish 5 days of steroids 3. Incentive spirometer use every hour 4. Breath deeply as much as possible. 5. Follow up with Primary care provider in 1 week 6. Weight loss highly encouraged, consider talking with primary care provider regarding bariatric evaluation. 7. Discharge home this morning with home oxygen, set this to 2 liters 8. Nebulizer machine at home, albuterol sent to pharmacy. Use 1 vial every 4 hours as needed. 9. Return to ER if worsening. 10. CMP in 1 week encouraged. 11. Diet: Would encourage meeting with industrial laborer 12. Activity: Ad ezequiel, return to normal activity as needed. Reviewed meds, reviewed hospital course, reviewed overnight details prior to d/ c this am. She is stable, vitals stable. NO new CBC/CMP as they were normal previous 48 hours. R/B/A to steroids/abx d/w patient. >30 minutes spent in discharging patient today.
[2018-09-01] MEDS ORDERED: NON-FORMULARY MEDICATION (Cholecalciferol (Vitamin D3) [Vitamin D3] 50,000 UNIT) PO SCH (09:00)
[2018-09-01] MEDS ORDERED: DRISDOL PO SCH (09:00)
== END 2018-08-30 08:45 | disposition home or self-care (01) | DRG 204 ==
LOC: ED 15:16 → MEDSURG B 20:36
PROVIDERS: ADMIT Family Medicine; ATTEND Family Medicine
DX: R06.02 Shortness of breath (principal); Z68.43 Body mass index [BMI] 50.0-59.9, adult; E87.0 Hyperosmolality and hypernatremia; J02.9 Acute pharyngitis, unspecified; E03.9 Hypothyroidism, unspecified; K21.9 Gastro-esophageal reflux disease without esophagitis; E87.6 Hypokalemia; R06.2 Wheezing; R06.00 Dyspnea, unspecified; R05 Cough; R07.0 Pain in throat; T36.0X5A Adverse effect of penicillins, initial encounter
CPT/HCPCS: 36415; 80053; 82550; 82803; 82962; 83036; 83605; 83880; 84145; 84443; 84484; 85025; 87040; 87389; 87502; 87651; 87801; 93005; 93010; 94150; 94640; 94761; 96374; 99284

== ENCOUNTER 2018-09-10 09:25 | Outpatient (CLI) | END 2018-09-10 09:26 | disposition home or self-care (01) | LOC: LAB 09:25 | PROVIDERS: ATTEND Nurse Practitioner | DX: E03.9 Hypothyroidism, unspecified (principal); E55.9 Vitamin D deficiency, unspecified; E87.1 Hypo-osmolality and hyponatremia; E87.6 Hypokalemia; F41.9 Anxiety disorder, unspecified; J18.9 Pneumonia, unspecified organism | CPT/HCPCS: 36415; 80053; 82306; 84443; 85025 ==

== ENCOUNTER 2018-09-19 13:28 | Outpatient (CLI) ==
--- NOTE | 2018-09-19 14:06 | DI ---
EXAM: Chest two views HISTORY: Bilateral pneumonia COMPARISON: 08/28/2018 TECHNIQUE: Two views of the chest were performed FINDINGS: Right chest port appears unchanged. The lungs are clear. There is no pleural effusion or pneumothorax. The heart is normal in size. The mediastinal contour is unchanged, noting atheroscle rosis. There are no acute abnormalities of the bones. IMPRESSION: No acute cardiopulmonary process.
--- NOTE | 2018-09-22 09:31 | MAMMO ---
EXAM: Bilateral digital screening mammogram (2-D and 3-D) History: Screening Comparison: Bilateral mammogram 06/26/2017 Findings: MLO and CC views of bilateral breasts demonstrate predominately fatty replaced breast pare nchyma. CAD was reviewed by the radiologist. Tomosynthesis was performed. There are no dominant ma sses, no suspicious microcalcifications and no architectural distortions. A cluster of nodular densi ties seen within the lower inner quadrant of the left breast middle depth. Impression: Indeterminate cluster of nodular densities within the lower inner quadrant of the left b reast. Recommend further evaluation with spot compression views and possible ultrasound. BIRADS 0, incomplete. Additional imaging is needed
== END 2018-09-19 13:29 | disposition home or self-care (01) ==
LOC: RAD 13:28
PROVIDERS: ATTEND Nurse Practitioner
DX: Z12.31 Encounter for screening mammogram for malignant neoplasm of breast (principal); J18.9 Pneumonia, unspecified organism

== ENCOUNTER 2018-10-03 08:52 | Outpatient (CLI) ==
--- NOTE | 2018-10-03 11:56 | MAMMO ---
EXAM: Digital diagnostic left breast mammogram with tomosynthesis, left breast ultrasound HISTORY: abnormal mammogram COMPARISON: 09/19/2018 FINDINGS: Mammogram: Digital MLO and CC views of the left breast were performed. Tomosynthesis was performed. Computer aided detection utilized. There are scattered fibroglandular densities. There is a nodul e in the left breast lower inner quadrant middle depth that persists on spot compression imaging. Ultrasound: Ultrasound left breast was performed. At the 7 o'clock position, 10 - 11 cm nipple, there is a cyst with mild internal echoes, measuring 0.3 x 0.4 x 0.5 cm. This likely corresponds with the finding on mammogram. IMPRESSION: Mildly complicated cyst in the left breast. This finding is probably benign. Recommend diagnostic mammogram and ultrasound follow-up in 6 months to ensure stability. BIRADS category 3, probably benign.
== END 2018-10-03 08:53 | disposition home or self-care (01) ==
LOC: RAD 08:52
PROVIDERS: ATTEND Nurse Practitioner
DX: R92.8 Other abnormal and inconclusive findings on diagnostic imaging of breast (principal)